=== PATIENT | female | born 1980 | race Caucasian/White ===

== ENCOUNTER 2018-02-17 14:24 | Emergency (ER) | payer OTHER, SELFPAY ==
[2018-02-17 14:28] VITALS: BP 150/112; PULSE 82; RESP 22; TEMP 36.8; O2SAT 98
--- NOTE | 2018-02-17 14:35 | ED_ITS ---
HPI - Fall <BHANU Srinivasan - Last Filed: 02/17/18 21:59> General Chief Complaint: Fall Stated Complaint: FELL TODAY AT FERRY Time Seen by Provider: 02/17/18 14:26 History of Present Illness HPI Narrative: 38-year-old female here for complaint of pain into her lateral left ankle. She reports she was stepping out of her car earlier today when she accidentally stepped in a pothole caused her ankle to roll and then causing her to have a fall. Increased pain into the left ankle with movement and weight- bearing. She denies hitting her head. She states that she has a mild abrasion to the anterior right knee. Wound was cleansed and dressed with a Band-Aid. She is able to bear weight and been to the right knee with no complications. She reports her last tetanus was 4 years ago She denies any other injuries or concerns at this time. Related Data Previous Rx's Medication Instructions Recorded hydrocodone-acetaminophen [Nyssa] 1 tab PO Q6H PRN #10 tab NS 02/17/18 Allergies Allergy/AdvReac Type Severity Reaction Status Date / Time Penicillins Allergy Hives Verified 02/17/18 15:05 Sulfa (Sulfonamide Allergy Sneezing Verified 02/17/18 15:05 Antibiotics) Review of Systems <BHANU Srinivasan - Last Filed: 02/17/18 21:59> Constitutional Denies chills, Denies fever(s), Denies lethargy and Denies weakness Eyes Denies change in vision, Denies eye discharge, Denies irritation and Denies loss of vision Cardiovascular Denies chest pain, Denies irregular heart rhythm, Denies lightheadedness, Denies palpitations, Denies dyspnea, Denies dyspnea on exertion and Denies orthopnea Respiratory Denies cough, Denies dyspnea, Denies dyspnea on exertion and Denies wheezing Genitourinary Denies hematuria, Denies flank pain, Denies urinary incontinence and Denies urinary urgency Musculoskeletal Comments: Left ankle pain Integumentary/Breasts Denies pruritus, Denies erythema, Denies rash and Denies wounds Neurologic Denies confusion, Denies loss of vision and Denies weakness Psychiatric Denies anxiety, Denies confusion, Denies depression, Denies homicidal ideation and Denies suicidal ideation Endocrine Denies palpitations Allergic/Immunologic Denies wheezing Exam <BHANU Srinivasan - Last Filed: 02/17/18 21:59> Initial Vital Signs Initial Vital Signs: Vital Signs Temperature 98.3 F 02/17/18 14:28 Pulse Rate 82 02/17/18 14:28 Respiratory Rate 22 02/17/18 14:28 Blood Pressure 150/112 H 02/17/18 14:28 Pulse Oximetry 98 02/17/18 14:28 Const General: cooperative and well developed Nutritional Appearance: well nourished Orientation: alert, awake, oriented x3 and not confused HENTX Mouth: oral mucosae normal and moist mucous membranes Eyes Sclera: sclerae normal Cornea: corneas normal Pupils: PERRL EOM: EOM intact bilaterally Neck Neck: normal visual inspection, trachea midline, No lymphadenopathy, No midline deformity, No tender and No JVD Lymphatic: No lymphedema Resp Effort & Inspection: normal respiratory effort, able to speak in complete sentences, no respiratory distress and no use of accessory muscles Auscultation: clear to auscultation bilaterally, no rales, no rhonchi and no wheezes Cardio Rate: regular rate Rhythm: regular rhythm Heart Sounds: no click, no gallops, no murmurs and no rubs Pulses: normal peripheral pulses Skin General: no rashes or lesions noted, No jaundice and No petechiae Extrem Other: Tenderness slight ecchymosis and swelling to the lateral left malleolus. Distal sensation is intact. Distal range of motion is intact. Distal pulses are intact <Caitlyn Waller DO - Last Filed: 02/18/18 08:54> Initial Vital Signs Initial Vital Signs: Vital Signs Temperature 98.3 F 02/17/18 14:28 Pulse Rate 82 02/17/18 14:28 Respiratory Rate 22 02/17/18 14:28 Blood Pressure 150/112 H 02/17/18 14:28 Pulse Oximetry 98 02/17/18 14:28 Course <BHANU Srinivasan - Last Filed: 02/17/18 21:59> Orders Ordered: Discontinued Medications Hydrocodone Bitart/Acetaminophen (Nyssa 5/325) 1 tab PO NOW ONE Stop: 02/17/18 14:53 Last Admin: 02/17/18 15:02 Dose: 1 tab Hydrocodone Bitart/Acetaminophen (Vicodin Prepack) 1 bottle MISC SEEINSTR ONE Stop: 02/17/18 17:36 Last Admin: 02/17/18 17:39 Dose: 1 bottle Vital Signs - 8 hr 02/17/18 14:28 02/17/18 16:30 Temperature 98.3 F Pulse Rate 82 79 Respiratory Rate 22 20 Blood Pressure 150/112 H Blood Pressure [Right Arm] 148/95 H Pulse Oximetry 98 97 <Caitlyn Waller DO - Last Filed: 02/18/18 08:54> Orders Ordered: Discontinued Medications Hydrocodone Bitart/Acetaminophen (Nyssa 5/325) 1 tab PO NOW ONE Stop: 02/17/18 14:53 Last Admin: 02/17/18 15:02 Dose: 1 tab Hydrocodone Bitart/Acetaminophen (Vicodin Prepack) 1 bottle MISC SEEINSTR ONE Stop: 02/17/18 17:36 Last Admin: 02/17/18 17:39 Dose: 1 bottle Vital Signs - 8 hr 02/17/18 14:28 02/17/18 16:30 Temperature 98.3 F Pulse Rate 82 79 Respiratory Rate 22 20 Blood Pressure 150/112 H Blood Pressure [Right Arm] 148/95 H Pulse Oximetry 98 97 MDM - Fall <BHANU Srinivasan - Last Filed: 02/17/18 21:59> Imaging Data ankle: Radiologist's impression: XRay Report Signed Patient: BENNY SKELTON MR#: [id number] : 1980 Acct:[id number] Age/Sex: 38 / F Date of Service: 02/17/18 Loc: ED Accession Number: [id number] Procedure: XR ankle LT min 3V Ordering Provider: Kemal Clarke PROCEDURE: XR ANKLE LT MIN 3V INDICATIONS: Pain to left ankle after stepping in hole TECHNIQUE: 3 views of the ankle were acquired. COMPARISON: None. FINDINGS: Bones: There is a small mildly displaced avulsion fracture along the inferior aspect of the lateral malleolus. Ankle mortise is normally aligned. No suspicious bony lesions. Soft tissues: There is soft tissue swelling over the lateral malleolus. No tibiotalar joint effusion. Achilles tendon appears normal. IMPRESSION: 1. Mildly displaced avulsion fracture of the lateral malleolus. Dictated by: Duane Brewer M.D. on 02/17/2018 at 15:46 Approved by: Duane Brewer M.D. on 02/17/2018 at 15:47 [facility] Narrative Medical decision making narrative: X-ray the left ankle shows fracture to the distal aspect of the left malleolus. She is placed in a splint and crutches for comfort support and nonweightbearing. [id number] Tylenol or Motrin as needed for any discomfort. Small amount of Nyssa is prescribed for breakthrough pain. Ice and elevation help with swelling. She is referred Orthopedics. Patient call the number tomorrow to schedule follow-up appointment later this week. For any worsening symptoms return to the emergency room. Discharge Plan Departure Patient Disposition: Home, Self-Care Clinical Impression: Ankle fracture Discharge Date/Time: 02/17/18 17:47 Interventions: ED Discharge Assessment Last Done: 02/17/18 17:45 Instructions: Ankle Fracture Activity Restrictions/Additional Instructions: X-ray the left ankle shows fracture to the left ankle. You have been placed in a splint and crutches for comfort support and nonweightbearing use as directed. [id number] Tylenol or Motrin as needed for any discomfort. Small amount of Nyssa is prescribed for breakthrough pain. Ice and elevation help with swelling. You are referred to Orthopedics. call the number tomorrow to schedule follow-up appointment later this week. For any worsening symptoms return to the emergency room. Prescriptions: New hydrocodone-acetaminophen [Nyssa] 5-325 mg tablet 1 tab PO Q6H PRN (Reason: pain) Qty: 10 RF: 0 Referrals: Jessica Noe MD [Physician] - <Caitlyn Waller DO - Last Filed: 02/18/18 08:54> [facility] ED Attending Kelsieature Attestation: I was immediately available in the department for consultation. Documentation has been reviewed. I agree with assessment and plan.
--- NOTE | 2018-02-17 14:53 | DI.RAD.S_ITS ---
PROCEDURE: XR ANKLE LT MIN 3V INDICATIONS: Pain to left ankle after stepping in hole TECHNIQUE: 3 views of the ankle were acquired. COMPARISON: None. FINDINGS: Bones: There is a small mildly displaced avulsion fracture along the inferior aspect of the lateral malleolus. Ankle mortise is normally aligned. No suspicious bony lesions. Soft tissues: There is soft tissue swelling over the lateral malleolus. No tibiotalar joint effusion. Achilles tendon appears normal. IMPRESSION: 1. Mildly displaced avulsion fracture of the lateral malleolus. Dictated by: Duane Brewer M.D. on 02/17/2018 at 15:46 Approved by: Duane Brewer M.D. on 02/17/2018 at 15:47
[2018-02-17] MEDS: HYDROCODONE/ACET 5/325 TABLET 1 TAB PO (15:02)
[2018-02-17 16:30] VITALS: BP 148/95; PULSE 79; RESP 20; O2SAT 97
[2018-02-17] MEDS: HYDROCODONE/ACET 5/325 PREPACK 1 BOTTLE MISC (17:39)
--- NOTE | 2018-02-17 17:45 | PC.NURSE ---
REturn demonstration of crutch use.
== END 2018-02-17 17:47 | disposition home or self-care (01) ==
PROVIDERS: Emergency Provider Nurse Practitioner Family
DX: S82.892A Other fracture of left lower leg, initial encounter for closed fracture (principal); W18.42XA Slipping, tripping and stumbling without falling due to stepping into hole or opening, initial encounter
CPT/HCPCS: 29515; 73610; 99283